=== PATIENT | female | born 1980 ===

== ENCOUNTER 2016-11-11 13:41 | Emergency (ER) | payer MEDICAID ==
[2016-11-11 13:46] VITALS: TEMP 97.6; O2SAT 100
--- NOTE | 2016-11-11 14:41 | ED PDOC ---
HPI: Female Pain Chief Complaint (Nursing): Female Genitourinary Chief Complaint (Provider): vaginal discharge History Per: Patient History/Exam Limitations: no limitations Onset/Duration Of Symptoms: Days (7) Current Symptoms Are (Timing): Still Present Additional History Per: Patient Additional Complaint(s): 36 year old female presents with complaints of recurrent vaginal discharge that has fishy odor. Vaginal discharge has fishy odor. She states she has been treated multiple times for same. Denies any dysuria, hematuria, dyspareunia. Seen at 2 other urgent care facilities and given antibiotics with recurrence. She has two male partners and does not use protection because of a reaction to ' latex.' She denies hx of any STIs. Past Medical History Vital Signs: Last Vital Signs Temp 97.6 F 11/11/16 13:43 Pulse 118 H 11/11/16 13:43 Resp 16 11/11/16 13:43 BP 137/92 H 11/11/16 13:43 Pulse Ox 100 11/11/16 13:43 - Medical History PMH: No Chronic Diseases - Surgical History Surgical History: Other surgeries: cardiac ablation - Family History Family History: States: Unknown Family Hx - Home Medications Home Medications: Ambulatory Orders Medication Instructions Recorded Metronidazole [Flagyl] 500 mg PO Q12 7 Days 11/11/16 - Allergies Allergies/Adverse Reactions: Allergies Allergy/AdvReac Type Severity Reaction Status Date / Time No Known Allergies Allergy Verified 01/29/14 17:46 Review of Systems Constitutional: Negative for: Fever, Sweats Eyes: Negative for: Vision Change ENT: Negative for: Ear Discharge, Nose Discharge Cardiovascular: Negative for: Chest Pain Respiratory: Negative for: Cough, Shortness of Breath Gastrointestinal: Negative for: Nausea, Vomiting, Abdominal Pain Genitourinary Female: Positive for: Vaginal Discharge (fishy odor). Negative for: Dysuria, Frequency, Incontinence, Pelvic Pain Skin: Negative for: Rash Physical Exam - Physical Exam Appears: Positive for: No Acute Distress Gastrointestinal/Abdominal: Positive for: Soft. Negative for: Tenderness, Distended Pelvic Exam: Positive for: External Exam Normal, Speculum Exam Normal, Bimanual Exam Normal, No Cerv. Motion Tender, Discharge (small amount of white discharge , no odor). Negative for: No Masses, Active Bleeding Extremity: Negative for: Pedal Edema Neurologic/Psych: Positive for: Alert, component design engineer II-XII - ECG O2 Sat by Pulse Oximetry: 100 - Progress ED Course And Treament: 36 year old female with recurrent vaginal infections with fishy odor. -culture for BV/gonorrhea/chlamydia -will give rocephin/azithro empirically -d/c with rx for flagyl for BV. -counseled sexual risk reduction, importance of using barrier contraception. -Patient has appt at [facility] on 11/21/2016 case d/w Dr. Monahan. Disposition - Clinical Impression Clinical Impression: BV (bacterial vaginosis), STD (female) - Patient ED Disposition Is Patient to be Admitted: No - Disposition Referrals: [facility] [Outside] Disposition: Routine/Home Disposition Time: 16:12 Condition: GOOD Additional Instructions: Patient will follow up at [facility] on 11/21/2016 Prescriptions: Metronidazole [Flagyl] 500 mg PO Q12 7 Days Instructions: Bacterial Vaginosis (ED), Sexually Transmitted Diseases (ED), Safe Sex (ED) Forms: [facility] (Solomon Islander) Print Language: MALAY
[2016-11-11] MEDS ORDERED: cefTRIAXone (Rocephin) 1 gm Inj IM STA (14:54)
[2016-11-11] MEDS ORDERED: cefTRIAXone (Rocephin) 250 mg Inj ONE (14:57)
[2016-11-11 16:13] VITALS: BP 132/74; PULSE 92; RESP 20
== END 2016-11-11 16:13 | disposition home or self-care (01) ==
LOC: H.ER 13:41
DX: N76.0 Acute vaginitis (principal)

== ENCOUNTER 2017-03-11 16:32 | Emergency (ER) | payer MEDICAID ==
[2017-03-11 16:45] VITALS: BP 136/84; PULSE 90; RESP 16; TEMP 96.7; O2SAT 100
[2017-03-11] MEDS ORDERED: Naproxen 500 MG TAB PO STA (16:53)
--- NOTE | 2017-03-11 17:03 | ED PDOC ---
HPI: General Adult Time Seen by Provider: 03/11/17 16:49 Chief Complaint (Nursing): Abnormal Skin Integrity Chief Complaint (Provider): Back SKin History Per: Patient Onset/Duration Of Symptoms: Days Additional Complaint(s): Elayne Cadena is a 36 year old female with a past medical history of heart ablation and 2 caesarians sections who presents to the Emergency Department complaining of right flank pain since yesterday. Patient states it hurts when she stands up and moves around. States she had a Depo shot (2nd time) yesterday. Localized redness on her abdomen. Denies allergies to medications PMD: [place] Past Medical History Reviewed: Historical Data, Nursing Documentation, Vital Signs Vital Signs: Last Vital Signs Temp 96.7 F L 03/11/17 16:45 Pulse 90 03/11/17 16:45 Resp 16 03/11/17 16:45 BP 136/84 03/11/17 16:45 Pulse Ox 100 03/11/17 17:14 - Medical History Other PMH: Heart Ablation - Surgical History Surgical History: (x 2) - Family History Family History: States: Unknown Family Hx - Home Medications Home Medications: Ambulatory Orders Medication Instructions Recorded Metronidazole [Flagyl] 500 mg PO Q12 7 Days tablet 11/11/16 Cephalexin [Keflex] 500 mg PO QID #28 capsule 03/11/17 Naproxen 1 tab PO Q12 PRN #14 tab 03/11/17 diaZEpam [Valium] 5 mg PO Q6 PRN #2 tab 03/11/17 - Allergies Allergies/Adverse Reactions: Allergies Allergy/AdvReac Type Severity Reaction Status Date / Time No Known Allergies Allergy Verified 01/29/14 17:46 Review of Systems ROS Statement: Except As Marked, All Systems Reviewed And Found Negative Musculoskeletal: Positive for: Other (Right Flank Pain) Physical Exam - Reviewed Nursing Documentation Reviewed: Yes Vital Signs Reviewed: Yes - Physical Exam Appears: Positive for: Non-toxic Head Exam: Positive for: ATRAUMATIC, NORMAL INSPECTION, NORMOCEPHALIC Skin: Negative for: Normal Color (Localized erythema on abdomen ) Eye Exam: Positive for: Normal appearance Neck: Positive for: Normal Respiratory: Positive for: Normal Breath Sounds. Negative for: Respiratory Distress Gastrointestinal/Abdominal: Positive for: Other (2.5 cm in diameter region erythema noted right lower abdomen). Negative for: Tenderness Back: Positive for: Other (Right sacral paralumbar tenderness). Negative for: L CVA Tenderness, R CVA Tenderness Extremity: Positive for: Normal ROM Neurologic/Psych: Positive for: Alert, Oriented - Laboratory Results Urine POC: Negative Urine dip results: Negative for: Leukocyte Esterase, Blood, Nitrate, Ketones, Glucose, Bilirubin, Protein - ECG O2 Sat by Pulse Oximetry: 100 (RA) Pulse Ox Interpretation: Normal Medical Decision Making Medical Decision Making: Time: 16:53 Plan: - Naproxen 500 mg PO - Urine Culture - Urinalysis Scribe Attestation: Documented by Clive Page, acting as a scribe for Shala Moreno PA-C Provider Scribe Attestation: All medical record entries made by the Scribe were at my direction and personally dictated by me. I have reviewed the chart and agree that the record accurately reflects my personal performance of the history, physical exam, medical decision making, and the department course for this patient. I have also personally directed, reviewed, and agree with the discharge instructions and disposition. Disposition - Clinical Impression Clinical Impression: Cellulitis - Patient ED Disposition Is Patient to be Admitted: No - Disposition Referrals: [facility] [Outside] Disposition: Routine/Home Disposition Time: 17:18 Condition: FAIR Prescriptions: Cephalexin [Keflex] 500 mg PO QID #28 capsule diaZEpam [Valium] 5 mg PO Q6 PRN #2 tab PRN Reason: Pain, Moderate (4-7) Naproxen 1 tab PO Q12 PRN #14 tab PRN Reason: Pain, Moderate (4-7) Instructions: Cellulitis (ED), Acute Low Back Pain (DC) Forms: [employer] (Icelandic), [facility] ED School/Work Excuse
[2017-03-11 17:17] LABS: RBC URINE 2 /hpf (0-3); URINE BACTERIA RARE (<OCC); URINE BILIRUBIN NEGATIVE (NEGATIVE); URINE BLOOD NEGATIVE (NEGATIVE); URINE COLOR YELLOW (YELLOW); URINE GLUCOSE (UA) NEG (Normal); URINE KETONE NEGATIVE (NEGATIVE); URINE LEUKOCYTE ESTERASE NEG Leu/uL (Negative); URINE PROTEIN NEGATIVE (NEGATIVE); URINE UROBILINOGEN 0.2-1.0 mg/dL (0.2-1.0); WBC URINE 1 /hpf (0-5)
== END 2017-03-11 17:33 | disposition home or self-care (01) ==
LOC: H.ER 16:32
DX: L03.312 Cellulitis of back [any part except buttock and flank] (principal)

== ENCOUNTER 2017-03-31 04:06 | Emergency (ER) | payer MEDICAID ==
[2017-03-31 04:19] VITALS: BP 128/79; PULSE 110; RESP 18; TEMP 98; O2SAT 100
[2017-03-31] MEDS ORDERED: Lidocaine 1% Inj (20ml) IJ ONE (04:27)
[2017-03-31] MEDS ORDERED: Povidone Iodine Topical 10% Sol ONE (04:30)
--- NOTE | 2017-03-31 04:32 | ED PDOC ---
HPI: General Adult Time Seen by Provider: 03/31/17 04:08 Chief Complaint (Nursing): Finger,Hand,&Wrist History Per: Patient Additional Complaint(s): Pt. states last night she developed atraumatic R middle finger pain. Admits to cutting her nails "very short." Denies fever, discharge. Past Medical History Reviewed: Historical Data, Nursing Documentation, Vital Signs Vital Signs: Last Vital Signs Temp 98 F 03/31/17 04:16 Pulse 110 H 03/31/17 04:16 Resp 18 03/31/17 04:16 BP 128/79 03/31/17 04:16 Pulse Ox 100 03/31/17 04:34 - Surgical History Surgical History: (x 2) - Family History Family History: States: No Known Family Hx - Home Medications Home Medications: Ambulatory Orders Medication Instructions Recorded Metronidazole [Flagyl] 500 mg PO Q12 7 Days tablet 11/11/16 Cephalexin [Keflex] 500 mg PO QID #28 capsule 03/11/17 Naproxen 1 tab PO Q12 PRN #14 tab 03/11/17 diaZEpam [Valium] 5 mg PO Q6 PRN #2 tab 03/11/17 Cephalexin [cephalexin] 500 mg PO Q6 #28 cap 03/31/17 - Allergies Allergies/Adverse Reactions: Allergies Allergy/AdvReac Type Severity Reaction Status Date / Time No Known Allergies Allergy Verified 03/31/17 04:16 Review of Systems ROS Statement: Except As Marked, All Systems Reviewed And Found Negative Physical Exam - Physical Exam Appears: Positive for: Well, Non-toxic, No Acute Distress Skin: Positive for: Normal Color, Warm. Negative for: Rash Pulses-Radial (R): 2+ Extremity: Positive for: Normal ROM, Other (R 3rd digit with tenderness and fluctuance on nail margin with nail intact and cap refill < 2 seconds) - ECG O2 Sat by Pulse Oximetry: 100 Procedures - Time-Out Type of Procedure: Incision and drainage Site of Procedure: R 3rd digit Correct Patient (with visual ID + MR# on ID Band): Yes Correct Procedure: Yes Correct Site Marked: Yes - Incision and Drainage Blade Size: 11 I & D Procedure: betadine prep Progress: Small amount of purulent material was expressed out of finger. Bacitracin ointment applied. DSD applied. Disposition - Clinical Impression Clinical Impression: Paronychia - Patient ED Disposition Is Patient to be Admitted: No - Disposition Disposition: Routine/Home Disposition Time: 04:52 Condition: STABLE Prescriptions: Cephalexin [cephalexin] 500 mg PO Q6 #28 cap Instructions: Paronychia (ED) Forms: [facility] (Filipino)
== END 2017-03-31 05:00 | disposition home or self-care (01) ==
LOC: H.ER 04:06
DX: L03.011 Cellulitis of right finger (principal)

== ENCOUNTER 2017-09-23 23:15 | Emergency (ER) | payer MEDICAID ==
[2017-09-24] MEDS ORDERED: Tmp-Smz 800 mg-160 mg DS Tab PO STA
--- NOTE | 2017-09-24 00:01 | ED PDOC ---
HPI: General Adult Time Seen by Provider: 09/23/17 23:58 Chief Complaint (Nursing): Bite Chief Complaint (Provider): abscess History Per: Patient (37 y/o female here with left axillary pain noted after mosquito bite. Denies any fevers/chills. Believes td up to date.) Past Medical History Reviewed: Historical Data, Nursing Documentation, Vital Signs Vital Signs: Last Vital Signs Temp 98 F 09/24/17 00:44 Pulse 78 09/24/17 00:44 Resp 18 09/24/17 00:44 BP 111/66 09/24/17 00:44 Pulse Ox 100 09/24/17 00:44 - Surgical History Surgical History: (x 2) - Family History Family History: States: Unknown Family Hx - Home Medications Home Medications: Ambulatory Orders Medication Instructions Recorded Metronidazole [Flagyl] 500 mg PO Q12 7 Days tablet 11/11/16 Cephalexin [Keflex] 500 mg PO QID #28 capsule 03/11/17 Naproxen 1 tab PO Q12 PRN #14 tab 03/11/17 diaZEpam [Valium] 5 mg PO Q6 PRN #2 tab 03/11/17 Cephalexin [cephalexin] 500 mg PO Q6 #28 cap 03/31/17 Cephalexin [Keflex] 500 mg PO QID #28 capsule 09/24/17 Sulfamethoxazole/Trimethoprim 2 tab PO BID #28 tab 09/24/17 [Bactrim DS 800 mg-160 mg] - Allergies Allergies/Adverse Reactions: Allergies Allergy/AdvReac Type Severity Reaction Status Date / Time No Known Allergies Allergy Verified 09/23/17 23:25 Review of Systems ROS Statement: Except As Marked, All Systems Reviewed And Found Negative Physical Exam - Reviewed Nursing Documentation Reviewed: Yes Vital Signs Reviewed: Yes - Physical Exam Appears: Positive for: Well, Non-toxic, No Acute Distress Head Exam: Positive for: ATRAUMATIC, NORMAL INSPECTION, NORMOCEPHALIC Skin: Positive for: Warm. Negative for: Normal Color (5 mm swelling noted indurated surrounded by region of erythema 2 cm in diameter.) Eye Exam: Positive for: EOMI, Normal appearance, PERRL ENT: Positive for: Normal ENT Inspection Neck: Positive for: Normal, Painless ROM Cardiovascular/Chest: Positive for: Regular Rate, Rhythm Respiratory: Positive for: CNT, Normal Breath Sounds Gastrointestinal/Abdominal: Positive for: Normal Exam, Soft Back: Positive for: Normal Inspection Extremity: Positive for: Normal ROM Neurologic/Psych: Positive for: Alert, Oriented - ECG O2 Sat by Pulse Oximetry: 99 - Progress ED Course And Treament: VERBAL CONSENT PRIOR TO PROCEDURE ATTEMPT MADE TO ASPIRATE WITH 18 GUAGE NEEDLE WITHOUT SUCCESS. Patient offered td; does not want Keflex 500mg x 1 dose Bactrim DS 2 tab x 1 dose Disposition - Clinical Impression Clinical Impression: Insect bite - wound, Abscess - Patient ED Disposition Is Patient to be Admitted: No - Disposition Disposition: Routine/Home Disposition Time: 00:01 Condition: FAIR Additional Instructions: RETURN IN 48 HOURS FOR RE-EVALUATION Prescriptions: Cephalexin [Keflex] 500 mg PO QID #28 capsule Sulfamethoxazole/Trimethoprim [Bactrim DS 800 mg-160 mg] 2 tab PO BID #28 tab Instructions: Insect Bites and Stings, Cellulitis (Skin Infection), Adult (DC)
[2017-09-24] MEDS ORDERED: Tmp-Smz 800 mg-160 mg DS Tab ONE (00:14)
[2017-09-24 00:45] VITALS: BP 111/66; PULSE 78; RESP 18; TEMP 98
[2017-09-24 02:58] VITALS: O2SAT 99
== END 2017-09-24 00:45 | disposition home or self-care (01) ==
LOC: H.ER 23:15
DX: S50.862A Insect bite (nonvenomous) of left forearm, initial encounter (principal); W57.XXXA Bitten or stung by nonvenomous insect and other nonvenomous arthropods, initial encounter; Y92.89 Other specified places as the place of occurrence of the external cause; L02.412 Cutaneous abscess of left axilla

== ENCOUNTER 2017-09-26 20:11 | Emergency (ER) | payer MEDICAID ==
--- NOTE | 2017-09-26 20:58 | ED PDOC ---
HPI: Skin/Bite Injury Time Seen by Provider: 09/26/17 20:45 Chief Complaint (Nursing): Abnormal Skin Integrity Chief Complaint (Provider): abscess, open History Per: Patient History/Exam Limitations: no limitations Onset/Duration Of Symptoms: Days Current Symptoms Are (Timing): Still Present Quality Of Symptoms: Draining Additional Complaint(s): 37 year old female presents to the ED for an evaluation of bug bite on left arm. Patient visited the ED 2 days ago and was advised to do warm compress and provided antibiotics. Patient has not started her antibiotics. Reports drainage and itchiness on the bite. PMD: [facility] Past Medical History Reviewed: Historical Data, Nursing Documentation, Vital Signs Vital Signs: Last Vital Signs Temp 98.5 F 09/26/17 20:16 Pulse 92 H 09/26/17 20:16 Resp 16 09/26/17 20:16 BP 126/72 09/26/17 20:16 Pulse Ox 99 09/26/17 21:03 - Medical History PMH: No Chronic Diseases - Surgical History Surgical History: (x 2) - Family History Family History: States: Unknown Family Hx - Home Medications Home Medications: Ambulatory Orders Medication Instructions Recorded Metronidazole [Flagyl] 500 mg PO Q12 7 Days tablet 11/11/16 Cephalexin [Keflex] 500 mg PO QID #28 capsule 03/11/17 Naproxen 1 tab PO Q12 PRN #14 tab 03/11/17 diaZEpam [Valium] 5 mg PO Q6 PRN #2 tab 03/11/17 Cephalexin [cephalexin] 500 mg PO Q6 #28 cap 03/31/17 Cephalexin [Keflex] 500 mg PO QID #28 capsule 09/24/17 Sulfamethoxazole/Trimethoprim 2 tab PO BID #28 tab 09/24/17 [Bactrim DS 800 mg-160 mg] - Allergies Allergies/Adverse Reactions: Allergies Allergy/AdvReac Type Severity Reaction Status Date / Time No Known Allergies Allergy Verified 09/23/17 23:25 Review of Systems ROS Statement: Except As Marked, All Systems Reviewed And Found Negative Skin: Positive for: Other (abscess on left flank) Physical Exam - Reviewed Nursing Documentation Reviewed: Yes Vital Signs Reviewed: Yes - Physical Exam Appears: Positive for: Well, Non-toxic, No Acute Distress Head Exam: Positive for: ATRAUMATIC, NORMAL INSPECTION, NORMOCEPHALIC Skin: Positive for: Normal Color (cellulitis measuring 4cm x 4cm on left flank with area of open draining abscess), Warm, Dry Cardiovascular/Chest: Positive for: Regular Rate, Rhythm Respiratory: Positive for: Normal Breath Sounds Pulses-Carotid (L): 2+ Pulses-Carotid (R): 2+ Pulses-Radial (L): 2+ Pulses-Radial (R): 2+ Extremity: Positive for: Normal ROM, Other (left side cellulitis) Neurologic/Psych: Positive for: Alert, Oriented (x3). Negative for: Motor/ Sensory Deficits - Laboratory Results Result Diagrams: 09/26/17 21:36 - ECG O2 Sat by Pulse Oximetry: 99 (RA) Pulse Ox Interpretation: Normal Medical Decision Making Medical Decision Making: Time: 2046 Initial impression: cellulitis Initial plan: --CMP --CBC w/ Differential --Decadron 10mg Scribe Attestation: Documented by Neil Antoine, acting as a scribe for Srikanth Hall PA-C. Provider Scribe Attestation: All medical record entries made by the Scribe were at my direction and personally dictated by me. I have reviewed the chart and agree that the record accurately reflects my personal performance of the history, physical exam, medical decision making, and the department course for this patient. I have also personally directed, reviewed, and agree with the discharge instructions and disposition. Disposition - Clinical Impression Clinical Impression: Abscess, Cellulitis - Patient ED Disposition Is Patient to be Admitted: No Doctor Will See Patient In The: Office Counseled Patient/Family Regarding: Diagnosis, Need For Followup, Rx Given - Disposition Referrals: [facility] [Outside] Disposition: Routine/Home Disposition Time: 21:49 Condition: STABLE Additional Instructions: warm compresses over region of cellulitis 6x a day for 20-25mins each time continue with the antibiotics (keflex and bactrim) as prescribed return to ED if red streaking appears above the lesion Instructions: Cellulitis and Erysipelas (Skin Infections), Cellulitis (Skin Infection), Adult (DC), Skin Abscess Forms: [facility] (Costa Rican)
[2017-09-26 21:38] LABS: BASO % 0.3 % (0.0-2.0); EOS % 0.4 % (0.0-4.0); LYMPH # 1.5 K/uL (1.0-4.3); LYMPH % 18.8 % (20.0-40.0); MEAN CELL VOLUME 92.6 fl (81.0-99.0); MEAN CORPUSCULAR HEMOGLOBIN 31.8 pg (27.0-31.0); MEAN CORPUSCULAR HGB CONC 34.3 g/dL (33.0-37.0); MEAN PLATELET VOLUME 9.7 fl (7.2-11.7); MONO # 0.6 K/uL (0.0-0.8); MONO % 7.1 % (0.0-10.0); NEUT % 73.4 % (50.0-75.0); RBC 4.41 Mil/uL (3.80-5.20); RED CELL DISTRIBUTION WIDTH 13.2 % (11.5-14.5); WHITE BLOOD COUNT 8.1 K/uL (4.8-10.8)
[2017-09-26 21:51] LABS: ALB/GLOB RATIO 1.2 (1.0-2.1); ALBUMIN 4.5 g/dL (3.5-5.0); ALT/SGPT 18 U/L (9-52); AST/SGOT 40 U/L (14-36); BLOOD UREA NITROGEN 8 mg/dl (7-17); CALCIUM 9.4 mg/dL (8.4-10.2); GFR AFRICAN-AMERICAN > 60; GFR NON-AFRICAN AMERICAN > 60
[2017-09-26 22:31] VITALS: BP 122/68; PULSE 78; RESP 18; TEMP 98; O2SAT 100
== END 2017-09-26 22:31 | disposition home or self-care (01) ==
LOC: H.ER 20:11
DX: L03.114 Cellulitis of left upper limb (principal)
CPT/HCPCS: 80053; 85025; 96372; 99282; J1100

== ENCOUNTER 2017-11-20 19:53 | Emergency (ER) | payer MEDICAID ==
[2017-11-20 21:44] VITALS: BP 121/78; PULSE 90; RESP 20; TEMP 98.2; O2SAT 99
--- NOTE | 2017-11-20 21:55 | ED PDOC ---
HPI: General Adult Time Seen by Provider: 11/20/17 21:43 Chief Complaint (Nursing): Upper Extremity Problem/Injury Chief Complaint (Provider): finger swelling History Per: Patient History/Exam Limitations: no limitations Additional Complaint(s): 37 y/o presents to the ED complaining of pain and swelling to the right 4th digit. Patient has been taking ibuprofen which has helped somewhat. Patient denies active drainage, fever or chills. PMD: [facility]. Past Medical History Reviewed: Historical Data, Nursing Documentation, Vital Signs Vital Signs: Last Vital Signs Temp 98.2 F 11/20/17 21:42 Pulse 90 11/20/17 21:42 Resp 20 11/20/17 21:42 BP 121/78 11/20/17 21:42 Pulse Ox 99 11/20/17 22:02 - Medical History PMH: No Chronic Diseases - Surgical History Surgical History: (x 2) Other surgeries: Cardiac ablation - Family History Family History: States: No Known Family Hx - Living Arrangements Living Arrangements: With Family - Social History Current smoker - smoking cessation education provided: No Alcohol: None Drugs: Denies - Home Medications Home Medications: Ambulatory Orders Medication Instructions Recorded Metronidazole [Flagyl] 500 mg PO Q12 7 Days tablet 11/11/16 Cephalexin [Keflex] 500 mg PO QID #28 capsule 03/11/17 Naproxen 1 tab PO Q12 PRN #14 tab 03/11/17 diaZEpam [Valium] 5 mg PO Q6 PRN #2 tab 03/11/17 Cephalexin [cephalexin] 500 mg PO Q6 #28 cap 03/31/17 Cephalexin [Keflex] 500 mg PO QID #28 capsule 09/24/17 Sulfamethoxazole/Trimethoprim 2 tab PO BID #28 tab 09/24/17 [Bactrim DS 800 mg-160 mg] Clindamycin [Cleocin] 300 mg PO QID #28 cap 11/20/17 Ibuprofen [Motrin Tab] 800 mg PO Q8 PRN #20 tab 11/20/17 - Allergies Allergies/Adverse Reactions: Allergies Allergy/AdvReac Type Severity Reaction Status Date / Time No Known Allergies Allergy Verified 09/23/17 23:25 Review of Systems ROS Statement: Except As Marked, All Systems Reviewed And Found Negative Constitutional: Negative for: Fever, Chills Musculoskeletal: Positive for: Hand Pain (Right 4th digit pain and swelling) Physical Exam - Reviewed Nursing Documentation Reviewed: Yes Vital Signs Reviewed: Yes - Physical Exam Appears: Positive for: Well, Non-toxic, No Acute Distress Head Exam: Positive for: ATRAUMATIC Skin: Positive for: Normal Color. Negative for: Rash Eye Exam: Positive for: Normal appearance Cardiovascular/Chest: Positive for: Regular Rate, Rhythm Respiratory: Positive for: Normal Breath Sounds Back: Positive for: Normal Inspection Extremity: Positive for: Normal ROM (of affected digit), Other (Non-fluctuant paronychia noted to the right fourth digit eponychial fold, no active drainage, fingernail intact with no lifting or discoloration). Negative for: Deformity Neurologic/Psych: Positive for: Alert, Oriented. Negative for: Motor/Sensory Deficits - Laboratory Results Urine POC: Negative (patient declined test, states she is certain she is not ) - ECG O2 Sat by Pulse Oximetry: 99 (RA) Pulse Ox Interpretation: Normal Medical Decision Making Medical Decision Making: Time: 2149 Impression: Right 4th digit paronychia Plan: -- Clindamycin 300 mg PO -- Motrin 600 mg PO Paronychia demonstrates no fluctuance, there is no indication at this time for incision and drainage. Patient given initial dose of clindamycin in ED. Prescriptions for Motrin and clindamycin provided. Advised warm compresses with Epsom salts as often as possible and wound recheck in 2-3 days. Scribe Attestation: Documented by Steve Simon, acting as a scribe for Chante Schmitz PA-C. Provider Scribe Attestation: All medical record entries made by the Scribe were at my direction and personally dictated by me. I have reviewed the chart and agree that the record accurately reflects my personal performance of the history, physical exam, medical decision making, and the department course for this patient. I have also personally directed, reviewed, and agree with the discharge instructions and disposition. Disposition - Clinical Impression Clinical Impression: Paronychia - Patient ED Disposition Is Patient to be Admitted: No Counseled Patient/Family Regarding: Diagnosis, Need For Followup, Rx Given - Disposition Referrals: [facility] [Outside] Disposition: Routine/Home Disposition Time: 22:15 Condition: STABLE Additional Instructions: Apply warm soaks with Epsom salts to affected area as often as possible. Take prescription meds as directed. Return to emergency room Sunday for re- evaluation or sooner if acutely worse. Prescriptions: Clindamycin [Cleocin] 300 mg PO QID #28 cap Ibuprofen [Motrin Tab] 800 mg PO Q8 PRN #20 tab PRN Reason: Pain, Moderate (4-7) Instructions: Paronychia (DC) Forms: [employer] (Kazakh)
== END 2017-11-20 22:26 | disposition home or self-care (01) ==
LOC: H.ER 19:53
DX: L03.019 Cellulitis of unspecified finger (principal)

== ENCOUNTER 2018-04-11 18:13 | Emergency (ER) | payer MEDICAID ==
[2018-04-11 18:40] VITALS: BP 124/77; PULSE 88; RESP 16; TEMP 98.2; O2SAT 100
--- NOTE | 2018-04-11 19:58 | ED PDOC ---
HPI: Skin/Bite Injury Time Seen by Provider: 04/11/18 19:21 Chief Complaint (Nursing): Abnormal Skin Integrity Chief Complaint (Provider): Abnormal Skin Integrity History Per: Patient History/Exam Limitations: no limitations Current Symptoms Are (Timing): Still Present Quality Of Symptoms: Swollen Additional Complaint(s): 37 y/o female presents to the ED with a bed bug bite to the left thigh onset 2 days ago. Patient reports bite became itchy and she began to scratch it. Soon after the bite became swollen and popped with pus like fluid coming out. It became red prompting her visit. LMP one week ago. Otherwise, patient denies any other symptoms. PMD: non provided Past Medical History Reviewed: Historical Data, Nursing Documentation, Vital Signs Vital Signs: Last Vital Signs Temp 98.2 F 04/11/18 18:37 Pulse 88 04/11/18 18:37 Resp 16 04/11/18 18:37 BP 124/77 04/11/18 18:37 Pulse Ox 100 04/11/18 18:37 - Medical History PMH: Denies: Chronic Kidney Disease - Surgical History Surgical History: (x 2) - Family History Family History: States: Unknown Family Hx - Home Medications Home Medications: Ambulatory Orders Medication Instructions Recorded Metronidazole [Flagyl] 500 mg PO Q12 7 Days tablet 11/11/16 Cephalexin [Keflex] 500 mg PO QID #28 capsule 03/11/17 Naproxen 1 tab PO Q12 PRN #14 tab 03/11/17 diaZEpam [Valium] 5 mg PO Q6 PRN #2 tab 03/11/17 Cephalexin [cephalexin] 500 mg PO Q6 #28 cap 03/31/17 Cephalexin [Keflex] 500 mg PO QID #28 capsule 09/24/17 Sulfamethoxazole/Trimethoprim 2 tab PO BID #28 tab 09/24/17 [Bactrim DS 800 mg-160 mg] Clindamycin [Cleocin] 300 mg PO QID #28 cap 11/20/17 Ibuprofen [Motrin Tab] 800 mg PO Q8 PRN #20 tab 11/20/17 Doxycycline Hyclate 100 mg PO BID #14 capsule 04/11/18 - Allergies Allergies/Adverse Reactions: Allergies Allergy/AdvReac Type Severity Reaction Status Date / Time No Known Allergies Allergy Verified 04/11/18 18:37 Review of Systems ROS Statement: Except As Marked, All Systems Reviewed And Found Negative Skin: Positive for: Other (swelling and redness to the left thigh) Physical Exam - Reviewed Nursing Documentation Reviewed: Yes Vital Signs Reviewed: Yes - Physical Exam Appears: Positive for: Well, No Acute Distress Head Exam: Positive for: ATRAUMATIC, NORMAL INSPECTION, NORMOCEPHALIC Eye Exam: Positive for: Normal appearance, EOMI, PERRL Extremity: Positive for: Swelling (3 cm area of erythmea with small central swelling ). Negative for: Other ( induration, fluctuance, lymphangitic streaking) Neurologic/Psych: Positive for: Alert, Oriented (x3). Negative for: Motor/Sensory Deficits - ECG O2 Sat by Pulse Oximetry: 100 Medical Decision Making Medical Decision Making: Time:19:39 - Doryx 100 mg PO Patient requires no further treatment and will be discharged with a prescription of Doryx. Scribe Attestation: Documented by Dayna Bob , acting as a scribe for Dalila Martinez. Provider Scribe Attestation: All medical record entries made by the Scribe were at my direction and personally dictated by me. I have reviewed the chart and agree that the record accurately reflects my personal performance of the history, physical exam, medical decision making, and the department course for this patient. I have also personally directed, reviewed, and agree with the discharge instructions and disposition. Disposition - Clinical Impression Clinical Impression: Cellulitis - Patient ED Disposition Is Patient to be Admitted: No - Disposition Disposition Time: 19:50 Condition: STABLE Prescriptions: Doxycycline Hyclate 100 mg PO BID #14 capsule Instructions: Cellulitis (Skin Infection), Adult (DC) Forms: Gorb (Chinese)
== END 2018-04-11 20:17 | disposition home or self-care (01) ==
LOC: H.ER 18:13
DX: L03.116 Cellulitis of left lower limb (principal)